=== PATIENT | male | born 1945 | race Caucasian/White ===

== ENCOUNTER 2017-07-01 17:00 | Emergency (ER) | payer MEDICARE, OTHER ==
--- NOTE | 2017-07-01 19:18 | EDM.PDOC ---
ED HPI GENERAL MEDICAL PROBLEM - General Chief Complaint: Cardiovascular Problem Stated Complaint: HEART Time Seen by Provider: 07/01/17 18:55 Source of Information: Reports: Patient, RN Notes Reviewed History Limitations: Reports: No Limitations - History of Present Illness INITIAL COMMENTS - FREE TEXT/NARRATIVE: Brought in by his Chief complaint Shortness of breath on exertion History of present illness 72-year-old male reports increased shortness of breath with exertion. He does have a history of hypertension hyperlipidemia and cardiac arrest in 1992 , due to myocardial infarction, did have angioplasty at that time and was recommended that he have a bypass but he declined this, has been medically managed. Last echocardiogram in 2014 He does have valvular heart disease, not sure of its a leaky valve not sure which valve. No other history of syncope No chest pain Mild swelling of the right ankle No orthopnea No paroxysmal nocturnal dyspnea Walking a dog he feels a little short of breath, especially last night. No palpitations No recent fevers or infections He was able to do snowblowing yesterday. No difficulty sleeping last night. Called the clinic but they referred him here because of the symptoms Apart from occasional pipe or cigar he does not smoke regularly. Both his parents smoked quite heavily, his father developed dementia but at age 78. Mom developed lung disease and lung cancer and at age 87 A brother , he had heart failure COPD and was a smoker He has a history of hypertension hyperlipidemia - Related Data Allergies Allergy/AdvReac Type Severity Reaction Status Date / Time No Known Allergies Allergy Verified 04/08/17 09:20 Home Meds: Home Meds Aspirin 81 mg PO DAILY 07/01/17 [History] Lisinopril 5 mg PO DAILY 07/01/17 [History] Metoprolol Succinate 50 mg PO DAILY 07/01/17 [History] Pediatric Multivit Comb No.101 [Gummy] 1 cap PO DAILY 07/01/17 [History] atorvaSTATin [Lipitor] 80 mg PO DAILY 07/01/17 [History] Past Medical History HEENT History: Reports: Cataract, Impaired Vision Cardiovascular History: Reports: High Cholesterol, Hypertension, [place] Oncologic (Cancer) History: Reports: Squamous Cell Carcinoma Dermatologic History: Reports: Other (See Below) Other Dermatologic History: nurofibromitosis - Infectious Disease History Infectious Disease History: Reports: Chicken Pox, Mumps - Past Surgical History HEENT Surgical History: Reports: Cataract Surgery Cardiovascular Surgical History: Reports: Other (See Below) Other Cardiovascular Surgeries/Procedures: Angioplasty GI Surgical History: Reports: Hernia, Abdominal Social & Family History - Tobacco Use Smoking Status *Q: Never Smoker - Caffeine Use Caffeine Use: Reports: Coffee - Recreational Drug Use Recreational Drug Use: No ED ROS GENERAL - Review of Systems Review Of Systems: See Below Constitutional: Denies: Fever, Chills, Diaphoresis, Decreased Appetite HEENT: Reports: No Symptoms Respiratory: Denies: Shortness of Breath, Cough Cardiovascular: Reports: Dyspnea on Exertion. Denies: Chest Pain, Lightheadedness, Palpitations, Syncope GI/Abdominal: Reports: No Symptoms Musculoskeletal: Reports: No Symptoms Skin: Reports: No Symptoms Neurological: Reports: No Symptoms Psychiatric: Reports: No Symptoms ED EXAM, GENERAL - Physical Exam Exam: See Below Exam Limited By: No Limitations General Appearance: Alert, No Apparent Distress, Other (Apart from elevation of blood pressure, he looks well, no acute distress, no difficulty speaking or breathing) Eye Exam: Bilateral Eye: EOMI, Normal Inspection Ears: Normal External Exam, Hearing Grossly Normal Nose: Normal Inspection Throat/Mouth: Normal Inspection, Normal Oropharynx, Normal Voice Head: Atraumatic, Normocephalic Neck: Normal Inspection, Supple, Other (Heart murmur transmitted into left carotid artery). No: Lymphadenopathy (L) Respiratory/Chest: No Respiratory Distress, Lungs Clear, No Accessory Muscle Use , Chest Non-Tender Cardiovascular: Normal Peripheral Pulses, Regular Rate, Rhythm, Systolic Murmur (On auscultation of the chest loudest in the right parasternal area but he also has radiation of heart murmur into the left carotid or else has a carotid bruit) , Other (Mild edema of his right ankle) GI/Abdominal: Normal Bowel Sounds, Soft, Non-Tender Back Exam: Normal Inspection Neurological: Alert, Oriented, No Motor/Sensory Deficits Skin Exam: Warm, Dry, Normal Color, Other (Multiple neurofibromas) Course - Vital Signs Last Recorded V/S: Last Vital Signs Temp 36.9 C 07/01/17 18:43 Pulse 68 07/01/17 19:57 Resp 14 07/01/17 19:57 BP 158/75 H 07/01/17 19:57 Pulse Ox 100 07/01/17 19:57 - Orders/Labs/Meds Orders: Active Orders 24 hr Category Date Time Status EKG Documentation Completion [RC] ASDIRECTED Care 07/01/17 19:16 Active EKG Documentation Completion [RC] ASDIRECTED Care 07/01/17 22:03 Active Chest 2V [CR] Stat Exams 07/01/17 19:15 Taken EKG 12 Lead [EK] Routine Ther 07/01/17 19:15 Ordered EKG 12 Lead [EK] Routine Ther 07/01/17 22:03 Ordered Labs: Laboratory Tests 07/01/17 07/01/17 07/01/17 Range/Units 19:25 19:25 21:34 WBC 7.9 (4.5-11.0) K/uL RBC 4.41 (4.30-5.90) M/uL Hgb 13.8 (12.0-15.0) g/dL Hct 39.9 L (40.0-54.0) % MCV 91 (80-98) fL MCH 31 (27-31) pg MCHC 35 (32-36) % Plt Count 190 (150-400) K/uL Sodium 139 L (140-148) mmol/L Potassium 3.7 (3.6-5.2) mmol/L Chloride 104 (100-108) mmol/L Carbon Dioxide 25 (21-32) mmol/L Anion Gap 13.7 (5.0-14.0) mmol/L BUN 19 H (7-18) mg/dL Creatinine 0.9 (0.8-1.3) mg/dL Est Cr Clr Drug Dosing 69.11 mL/min Estimated GFR (MDRD) > 60 (>60) Glucose 87 (74-106) mg/dL Calcium 9.1 (8.5-10.1) mg/dL Troponin I 0.059 H* 0.068 H* (0.000-0.056) ng/mL NT-Pro-B Natriuret Pep 249 H (5-125) pg/mL - Re-Assessments/Exams Free Text/Narrative Re-Assessment/Exam: 07/01/17 19:16 72-year-old male who presents with increasing shortness of breath with exertion over the last few days and palpitations last night. No symptoms presently Differential diagnosis includes respiratory infection, heart failure, angina, coronary artery disease among others Referred here from the office because of his symptoms will rule out ischemia 07/01/17 22:25 Chest x-ray negative for acute infiltrate or changes by my interpretation although the left side of the lung appears to be less dense than the right side. There may be some underlying emphysema, mild, EKG shows evidence of prior inferior infarction no acute changes Troponin minimally elevated at 0.059 CBC normal Remained asymptomatic during emergency Repeat EKG 2 hours later was unchanged Troponin was 0.068 Since he remained asymptomatic at rest and there is only a minimal difference in the troponin, safe for discharge but follow-up will be needed Echocardiogram to assess his valve and his ejection fraction and wall motion studies Referral to cardiology will need to be arranged Possibly stress test through nuclear medicine Return to emergency if chest pain short of breath or syncopal Departure - Departure Time of Disposition: 22:26 Disposition: Home, Self-Care 01 Condition: Good Clinical Impression: Shortness of breath on exertion Instructions: Shortness of Breath, Adult Referrals: Ivory Scruggs MD [Primary Care Provider] - Forms: ED Department Discharge Additional Instructions: No evidence of acute heart or lung disease tonight However shortness of breath with exertion can be Due to heart problems or lung disease Follow-up with your physician at the clinic to arrange echocardiogram and cardiology consultation. Also to discuss possible stress test Echocardiogram would be to assess her valve and your heart function. Return to emergency if that chest pain, shortness of breath at rest or with exertion that doesn't go away with rest, or severe weakness, fainting, or passing out. - My Orders Last 24 Hours: My Active Orders 07/01/17 19:15 Chest 2V [CR] Stat EKG 12 Lead [EK] Routine 07/01/17 19:16 EKG Documentation Completion [RC] ASDIRECTED 07/01/17 22:03 EKG Documentation Completion [RC] ASDIRECTED EKG 12 Lead [EK] Routine - Assessment/Plan Last 24 Hours: My Active Orders 07/01/17 19:15 Chest 2V [CR] Stat EKG 12 Lead [EK] Routine 07/01/17 19:16 EKG Documentation Completion [RC] ASDIRECTED 07/01/17 22:03 EKG Documentation Completion [RC] ASDIRECTED EKG 12 Lead [EK] Routine
--- NOTE | 2017-07-02 09:26 | CR ---
Chest 2V FINDINGS: The heart and vascular structures are normal in appearance. No infiltrates or effusions are demonstrated. The skeletal structures are unremarkable. IMPRESSION: Negative exam.
== END 2017-07-01 22:39 | disposition home or self-care (01) ==
LOC: JP.ED 17:00
DX: R06.02 Shortness of breath (principal); I10 Essential (primary) hypertension; E78.00 Pure hypercholesterolemia, unspecified; Z79.82 Long term (current) use of aspirin; Z79.899 Other long term (current) drug therapy
CPT/HCPCS: 36415; 71046; 71046-26; 80048; 83880; 84484; 85027; 93005; 99284; 99284-25

== ENCOUNTER 2017-09-22 14:02 | Observation (INO) | payer MEDICARE, OTHER ==
--- NOTE | 2017-09-22 15:51 | EDM.PDOC ---
ED HPI GENERAL MEDICAL PROBLEM - General Chief Complaint: General Stated Complaint: HEART DOUBLE PASS 08/27/17 Time Seen by Provider: 09/22/17 15:34 Source of Information: Reports: Patient, Family, RN Notes Reviewed History Limitations: Reports: No Limitations - History of Present Illness INITIAL COMMENTS - FREE TEXT/NARRATIVE: 72-year-old gentleman presents to emergency department today with a syncopal event and collapse. He has a known history of coronary artery disease recently underwent CABG he has approximately one month out states he's been doing well has been increasing in strength but no chest pain no shortness of breath and then today he had a syncopal event in his bedroom with collapse to the floor he did not injure himself he denies any chest pain shortness of breath nausea vomiting palpitations prior to the event at this time he feels asymptomatic - Related Data Allergies Allergy/AdvReac Type Severity Reaction Status Date / Time No Known Allergies Allergy Verified 04/08/17 09:20 Home Meds: Home Meds Aspirin 81 mg PO DAILY 07/01/17 [History] Metoprolol Succinate 25 mg PO DAILY 07/01/17 [History] Pediatric Multivit Comb No.101 [Gummy] 1 cap PO DAILY 07/01/17 [History] Nitroglycerin [Nitrostat] 0.4 mg SL ASDIRECTED PRN 07/10/17 [History] Clopidogrel [Plavix] 75 mg PO DAILY 09/22/17 [History] atorvaSTATin [Lipitor] 80 mg PO DAILY 09/22/17 [History] Past Medical History HEENT History: Reports: Cataract, Impaired Vision Cardiovascular History: Reports: CAD, High Cholesterol, Hypertension, [place], St[place] Oncologic (Cancer) History: Reports: Squamous Cell Carcinoma Dermatologic History: Reports: Other (See Below) Other Dermatologic History: nurofibromitosis - Infectious Disease History Infectious Disease History: Reports: Chicken Pox, Mumps - Past Surgical History HEENT Surgical History: Reports: Cataract Surgery Cardiovascular Surgical History: Reports: Other (See Below) Other Cardiovascular Surgeries/Procedures: Angioplasty GI Surgical History: Reports: Hernia, Abdominal Social & Family History - Tobacco Use Smoking Status *Q: Never Smoker - Caffeine Use Caffeine Use: Reports: Coffee, Tea - Recreational Drug Use Recreational Drug Use: No ED ROS GENERAL - Review of Systems Review Of Systems: See Below Constitutional: Reports: No Symptoms HEENT: Reports: No Symptoms Respiratory: Reports: No Symptoms Cardiovascular: Reports: Syncope. Denies: Chest Pain GI/Abdominal: Reports: No Symptoms : Reports: No Symptoms Musculoskeletal: Reports: No Symptoms Skin: Reports: No Symptoms ED EXAM, GENERAL - Physical Exam Exam: See Below Free Text/Narrative:: General: Male, not in any distress, alert and oriented x3 HEENT: head is atraumatic normocephalic, eyes pupils equal round reactive to light, sclera clear no conjunctivitis appreciated. Ears tympanic membranes clear and lopez landmarks and light reflex are present bilaterally canals are clear. Nose no septal deviation, nares are clear, no blood present. Mouth mucosa is moist and pink no erythema or exudate noted in soft palate, tongue is midline uvula is midline, dentition is intact. Neck: Supple no thyromegaly no tracheal deviation. Nodes: Cervical nodes subclavicular nodes nontender no palpable lymphadenopathy noted. Lungs: clear to auscultation bilaterally with symmetrical respirations, no adventitious noise appreciated. CV: Regular rate and rhythm S1 and S2 appreciated no murmurs rubs or gallops noted. Abdomen: Soft, nontender, no palpable masses or organomegaly appreciated, no distention no guarding bowel sounds are present, [scars ]. Neuro: Cranial nerves II through XII grossly intact Skin: Warm and dry, intact surgical wound clean dry and intact Extremities: +1 edema is appreciated on the left leg no edema is noted on the right leg, Course - Vital Signs Last Recorded V/S: Last Vital Signs Temp 98.4 F 09/22/17 15:22 Pulse 92 09/22/17 16:22 Resp 13 09/22/17 16:22 BP 135/71 09/22/17 16:22 Pulse Ox 95 09/22/17 16:22 - Orders/Labs/Meds Orders: Active Orders 24 hr Category Date Time Status Cardiac Monitoring [RC] .As Directed Care 09/22/17 15:46 Active EKG Documentation Completion [RC] ASDIRECTED Care 09/22/17 15:47 Active Peripheral IV Care [RC] . DIRECTED Care 09/22/17 17:07 Ordered UA W/MICROSCOPIC [URIN] Stat Lab 09/22/17 17:04 Ordered Lactated Ringers [Ringers, Lactated] 1,000 ml Med 09/22/17 17:07 Ordered IV BOLUS Sodium Chloride 0.9% [Saline Flush] Med 09/22/17 17:07 Ordered 10 ml FLUSH ASDIRECTED PRN Peripheral IV Insertion Adult [OM.PC] Urgent Oth 09/22/17 17:07 Ordered EKG 12 Lead [EK] Stat Ther 09/22/17 15:47 Ordered Medication Orders Lactated Ringer's (Ringers, Lactated) 1,000 mls @ 250 mls/hr IV BOLUS ONE Stop: 09/22/17 21:06 Sodium Chloride (Saline Flush) 10 ml FLUSH ASDIRECTED PRN PRN Reason: Keep Vein Open Labs: Laboratory Tests 09/22/17 09/22/17 09/22/17 Range/Units 15:57 15:57 17:04 WBC 12.1 H (4.5-11.0) K/uL RBC 3.97 L (4.30-5.90) M/uL Hgb 12.1 (12.0-15.0) g/dL Hct 37.5 L (40.0-54.0) % MCV 95 (80-98) fL MCH 31 (27-31) pg MCHC 32 (32-36) % Plt Count 390 (150-400) K/uL Neut % (Auto) 80 H (36-66) % Lymph % (Auto) 15 L (24-44) % Crisp % (Auto) 4 (2-6) % Eos % (Auto) 1 L (2-4) % Baso % (Auto) 0 (0-1) % Sodium 136 L (140-148) mmol/L Potassium 4.4 (3.6-5.2) mmol/L Chloride 102 (100-108) mmol/L Carbon Dioxide 23 (21-32) mmol/L Anion Gap 15.4 H (5.0-14.0) mmol/L BUN 23 H (7-18) mg/dL Creatinine 1.1 (0.8-1.3) mg/dL Est Cr Clr Drug Dosing 55.58 mL/min Estimated GFR (MDRD) > 60 (>60) Glucose 112 H (74-106) mg/dL Calcium 8.3 L (8.5-10.1) mg/dL Total Bilirubin 0.6 (0.2-1.0) mg/dL AST 33 (15-37) U/L ALT 53 (12-78) U/L Alkaline Phosphatase 179 H (46-116) U/L CK-MB (CK-2) 1.3 (0-3.6) mg/mL Troponin I 0.155 H* (0.000-0.056) ng/mL Total Protein 6.8 (6.4-8.2) g/dL Albumin 2.9 L (3.4-5.0) g/dL Globulin 3.9 H (2.3-3.5) g/dL Albumin/Globulin Ratio 0.7 L (1.2-2.2) Urine Color Yellow Urine Appearance Slightly cloudy Urine pH 5.0 (4.5-8.0) Ur Specific [place] 1.020 (1.008-1.030) Urine Protein Negative (NEGATIVE) mg/dL Urine Glucose (UA) Normal (NEGATIVE) mg/dL Urine Ketones Negative (NEGATIVE) mg/dL Urine Occult Blood Negative (NEGATIVE) Urine Nitrite Negative (NEGAITVE) Urine Bilirubin Negative (NEGATIVE) Urine Urobilinogen Normal (NORMAL) mg/dL Ur Leukocyte Esterase Small (NEGATIVE) Urine RBC 0-5 (0-5) Urine WBC 5-10 H (0-5) Ur Epithelial Cells Rare Amorphous Sediment Not seen Urine Bacteria Not seen Urine Mucus Moderate Meds: Medications Generic Name Dose Route Start Last Admin Trade Name Freq PRN Reason Stop Dose Admin Lactated Ringer's 1,000 mls @ 250 mls/hr 09/22/17 17:07 Ringers, Lactated IV 09/22/17 21:06 BOLUS ONE Sodium Chloride 10 ml 09/22/17 17:07 Saline Flush FLUSH ASDIRECTED PRN Keep Vein Open Departure - Departure Time of Disposition: 17:15 Disposition: Admitted As Inpatient 67 Condition: Good Clinical Impression: Syncope Qualifiers: Syncope type: unspecified Qualified Code(s): R55 - Syncope and collapse - Discharge Information Referrals: Ivory Scruggs MD [Primary Care Provider] - Forms: ED Department Discharge - My Orders Last 24 Hours: My Active Orders 09/22/17 15:46 Cardiac Monitoring [RC] .As Directed 09/22/17 15:47 EKG Documentation Completion [RC] ASDIRECTED EKG 12 Lead [EK] Stat 09/22/17 17:04 UA W/MICROSCOPIC [URIN] Stat 09/22/17 17:07 Peripheral IV Care [RC] . DIRECTED Lactated Ringers [Ringers, Lactated] 1,000 ml IV BOLUS Sodium Chloride 0.9% [Saline Flush] 10 ml FLUSH ASDIRECTED PRN Peripheral IV Insertion Adult [OM.PC] Urgent - Assessment/Plan Last 24 Hours: My Active Orders 09/22/17 15:46 Cardiac Monitoring [RC] .As Directed 09/22/17 15:47 EKG Documentation Completion [RC] ASDIRECTED EKG 12 Lead [EK] Stat 09/22/17 17:04 UA W/MICROSCOPIC [URIN] Stat 09/22/17 17:07 Peripheral IV Care [RC] . DIRECTED Lactated Ringers [Ringers, Lactated] 1,000 ml IV BOLUS Sodium Chloride 0.9% [Saline Flush] 10 ml FLUSH ASDIRECTED PRN Peripheral IV Insertion Adult [OM.PC] Urgent Plan: Assessment Acuity = acute Site and laterality = syncopal event comp came the patient with known history of coronary artery disease with recent bypass about one month ago Etiology = unclear etiology Manifestations = none Location of injury = Home Lab values = WBC elevated at 12.1 consistent leukocytosis, sodium low at 136 consistent hyponatremia troponin elevated at 0.155 of uncertain significance CK- MB was negative urinalysis reveals 5-10 WBCs consistent with pyuria Plan Called discussed case with Dr. Reid cardiology on-call at [facility] recommended observation recheck troponins hydration and cardiac monitoring. Called and discussed case with hospitalist oracle consultant he agreed, and evaluate the patient emergency department for admission This note was dictated using [employer] voice recognition software please call with any questions on syntax or grammar.
[2017-09-22] MEDS ORDERED: Sodium Chloride 0.9% 10 ML Syringe FLUSH PRN ×2 (17:07→19:50)
[2017-09-22] MEDS ORDERED: Lactated Ringers 1,000 ML IV ONE (17:07)
[2017-09-22] MEDS ORDERED: diphenhydrAMINE 50 MG/ML SDV IVPUSH ONE (18:19)
[2017-09-22] MEDS: methylPREDNISolone Sodium Succinate 40 MG/1 ML SDV IVPUSH SCH (18:29)
--- NOTE | 2017-09-22 19:11 | PCM.HP ---
H&P History of Present Illness - General Date of Service: 09/22/17 Admit Problem/Dx: Source of Information: Patient, Family, Provider, RN Notes Reviewed History Limitations: Reports: No Limitations - History of Present Illness Initial Comments - Free Text/Narative: This patient is a 72-year-old gentleman who is admitted through the emergency department with diffuse body rash, mild elevation in troponin, and a syncopal episode. 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 On discharge he was placed on aspirin and Plavix. He was doing well until yesterday when he noted onset of a rash involving most of his body with associated pruritus. He has felt more weak and tired since then. This morning after he got out of bed experienced a syncopal episode with minimal prodrome as far as symptoms. He came into the emergency department for evaluation EKG shows no acute ST segment changes, and troponin was mildly elevated. Findings reviewed with cardiology who recommended that he be admitted for observation status and serial troponin levels. He is felt to be mildly dehydrated and has received IV fluids in the emergency department. - Related Data Allergies/Adverse Reactions: Allergies Allergy/AdvReac Type Severity Reaction Status Date / Time No Known Allergies Allergy Verified 04/08/17 09:20 Home Medications: Home Meds Aspirin 81 mg PO DAILY 07/01/17 [History] Metoprolol Succinate 25 mg PO DAILY 07/01/17 [History] Pediatric Multivit Comb No.101 [Gummy] 1 cap PO DAILY 07/01/17 [History] Nitroglycerin [Nitrostat] 0.4 mg SL ASDIRECTED PRN 07/10/17 [History] Clopidogrel [Plavix] 75 mg PO DAILY 09/22/17 [History] atorvaSTATin [Lipitor] 80 mg PO DAILY 09/22/17 [History] Past Medical History HEENT History: Reports: Cataract, Impaired Vision Cardiovascular History: Reports: CAD, High Cholesterol, Hypertension, [place], Stents Oncologic (Cancer) History: Reports: Squamous Cell Carcinoma Dermatologic History: Reports: Other (See Below) Other Dermatologic History: nurofibromitosis - Infectious Disease History Infectious Disease History: Reports: Chicken Pox, Mumps - Past Surgical History HEENT Surgical History: Reports: Cataract Surgery Cardiovascular Surgical History: Reports: Other (See Below) Other Cardiovascular Surgeries/Procedures: Angioplasty GI Surgical History: Reports: Hernia, Abdominal Social & Family History - Tobacco Use Smoking Status *Q: Never Smoker - Caffeine Use Caffeine Use: Reports: Coffee, Tea - Recreational Drug Use Recreational Drug Use: No H&P Review of Systems - Review of Systems: Review Of Systems: See Below General: Reports: Weakness. Denies: Fever, Chills HEENT: Reports: Other (Visual loss secondary to CVA, slow improvement in vision) . Denies: Eye Pain, Headaches, Hearing Changes Pulmonary: Reports: No Symptoms Cardiovascular: Reports: Lightheadedness, Syncope. Denies: Chest Pain, Palpitations, Dyspnea on Exertion, Orthopnea, PND, Edema Gastrointestinal: Reports: No Symptoms Genitourinary: Reports: No Symptoms Musculoskeletal: Reports: No Symptoms Skin: Reports: Pruritis, Rash, Erythema. Denies: Urticaria Psychiatric: Reports: No Symptoms Neurological: Reports: No Symptoms Hematologic/Lymphatic: Reports: No Symptoms Immunologic: Reports: No Symptoms Exam - Exam Exam: See Below - Vital Signs Vital Signs: Last Vital Signs Temp 98.4 F 09/22/17 15:22 Pulse 92 09/22/17 16:22 Resp 13 09/22/17 16:22 BP 135/71 09/22/17 16:22 Pulse Ox 95 09/22/17 16:22 Orthostatic Blood Pressure [ 94/62 Standing] Orthostatic Blood Pressure [ 126/69 Supine] Weight: 140 lb 10.479 oz - Exam Quality Assessment: DVT Prophylaxis General: Alert, Oriented, Cooperative, Mild Distress HEENT: Conjunctiva Clear, Hearing Intact, Mucosa Moist & [place], Normal Nasal Septum, Posterior Pharynx Clear, Pupils Equal Neck: Supple, Trachea Midline, +2 Carotid Pulse wo Bruit Lungs: Clear to Auscultation, Normal Respiratory Effort Cardiovascular: Regular Rate, Regular Rhythm, Normal S1, Normal S2. No: Systolic Murmur, Diastolic Murmur GI/Abdominal Exam: Soft, Non-Tender, No Organomegaly, No Distention Back Exam: Normal Inspection, Full Range of Motion Extremities: Non-Tender, Pedal Edema Skin: Warm, Dry, Rash Neurological: Strength Equal Bilateral, Normal Speech, Normal Tone, Sensation Intact, Focal Deficit (Decrease in vision which has improved over the past few weeks). No: Cranial Nerves Intact Neuro Extensive - Mental Status: Alert, Oriented x3, Normal Mood/Affect, Normal Cognition, Memory Intact - Patient Data Lab Results Last 24 hrs: Laboratory Results - last 24 hr 09/22/17 09/22/17 09/22/17 Range/Units 15:57 15:57 17:04 WBC 12.1 H (4.5-11.0) K/uL RBC 3.97 L (4.30-5.90) M/uL Hgb 12.1 (12.0-15.0) g/dL Hct 37.5 L (40.0-54.0) % MCV 95 (80-98) fL MCH 31 (27-31) pg MCHC 32 (32-36) % Plt Count 390 (150-400) K/uL Neut % (Auto) 80 H (36-66) % Lymph % (Auto) 15 L (24-44) % [place] % (Auto) 4 (2-6) % Eos % (Auto) 1 L (2-4) % Baso % (Auto) 0 (0-1) % Sodium 136 L (140-148) mmol/L Potassium 4.4 (3.6-5.2) mmol/L Chloride 102 (100-108) mmol/L Carbon Dioxide 23 (21-32) mmol/L Anion Gap 15.4 H (5.0-14.0) mmol/L BUN 23 H (7-18) mg/dL Creatinine 1.1 (0.8-1.3) mg/dL Est Cr Clr Drug Dosing 55.58 mL/min Estimated GFR (MDRD) > 60 (>60) Glucose 112 H (74-106) mg/dL Calcium 8.3 L (8.5-10.1) mg/dL Total Bilirubin 0.6 (0.2-1.0) mg/dL AST 33 (15-37) U/L ALT 53 (12-78) U/L Alkaline Phosphatase 179 H (46-116) U/L CK-MB (CK-2) 1.3 (0-3.6) mg/mL Troponin I 0.155 H* (0.000-0.056) ng/mL Total Protein 6.8 (6.4-8.2) g/dL Albumin 2.9 L (3.4-5.0) g/dL Globulin 3.9 H (2.3-3.5) g/dL Albumin/Globulin Ratio 0.7 L (1.2-2.2) Urine Color Yellow Urine Appearance Slightly cloudy Urine pH 5.0 (4.5-8.0) Ur Specific [place] 1.020 (1.008-1.030) Urine Protein Negative (NEGATIVE) mg/dL Urine Glucose (UA) Normal (NEGATIVE) mg/dL Urine Ketones Negative (NEGATIVE) mg/dL Urine Occult Blood Negative (NEGATIVE) Urine Nitrite Negative (NEGAITVE) Urine Bilirubin Negative (NEGATIVE) Urine Urobilinogen Normal (NORMAL) mg/dL Ur Leukocyte Esterase Small (NEGATIVE) Urine RBC 0-5 (0-5) Urine WBC 5-10 H (0-5) Ur Epithelial Cells Rare Amorphous Sediment Not seen Urine Bacteria Not seen Urine Mucus Moderate Result Diagrams: 09/22/17 15:57 09/22/17 15:57 *Q Meaningful Use (ADM) - VTE Risk Assess *Q Each Risk Factor Represents 1 Point: History of prior major surgery less than 1 month Total Score 1 Point Risk Factors: 1 Each Risk Factor Represents 2 Points: Age 60 - 74 Years Total Score 2 Point Risk Factors: 2 Each Risk Factor Represents 3 Points: None Total Score 3 Point Risk Factors: 0 Each Risk Factor Represents 5 Points: None Total Score 5 Point Risk Factors: 0 Venous Thromboembolism Risk Factor Score *Q: 3 Problem List Initiated/Reviewed/Updated: Yes Orders Last 24hrs: Active Orders 24 hr Category Date Time Status Patient Status Manage Transfer [TRANSFER] Routine ADT 09/22/17 18:44 Ordered Cardiac Monitoring [RC] .As Directed Care 09/22/17 15:46 Active EKG Documentation Completion [RC] ASDIRECTED Care 09/22/17 15:47 Active Peripheral IV Care [RC] . DIRECTED Care 09/22/17 17:07 Active UA W/MICROSCOPIC [URIN] Stat Lab 09/22/17 17:04 Ordered Lactated Ringers [Ringers, Lactated] 1,000 ml Med 09/22/17 17:07 Active IV BOLUS Sodium Chloride 0.9% [Saline Flush] Med 09/22/17 17:07 Active 10 ml FLUSH ASDIRECTED PRN methylPREDNISolone Sod Succ [Solu-MEDROL] Med 09/22/17 18:30 Active 40 mg IVPUSH Q6H Peripheral IV Insertion Adult [OM.PC] Urgent Oth 09/22/17 17:07 Ordered Resuscitation Status Routine Resus Stat 09/22/17 18:46 Ordered EKG 12 Lead [EK] Stat Ther 09/22/17 15:47 Ordered Medication Orders Lactated Ringer's (Ringers, Lactated) 1,000 mls @ 250 mls/hr IV BOLUS ONE Stop: 09/22/17 21:06 Last Admin: 09/22/17 17:16 Dose: 250 mls/hr Methylprednisolone Sodium Succinate (Solu-Medrol) 40 mg IVPUSH Q6H NOHEMY Last Admin: 09/22/17 18:29 Dose: 40 mg Sodium Chloride (Saline Flush) 10 ml FLUSH ASDIRECTED PRN PRN Reason: Keep Vein Open Last Admin: 09/22/17 17:16 Dose: 10 ml Assessment/Plan Comment:: ASSESSMENT AND PLAN DIFFUSE DERMATITIS-likely a drug reaction, most likely medication would be Plavix as he is recently been started on this within the past month. -Discontinue Plavix -Benadryl 25 mg IV every 6 hours when necessary -Solu-Medrol 40 mg IV every 6 hours MILD ELEVATION IN TROPONIN-reviewed with cardiology, recommended observation admission for serial troponin levels, felt likely to be secondary to mild dehydration. -Serial troponin levels SYNCOPAL EPISODE-likely secondary to mild dehydration and possible component of allergic reaction to medication. He had minimal preceding symptoms other than mild lightheadedness. -Cardiac monitoring -IV fluids for hydration -Orthostatic vital signs RECENT CORONARY ARTERY BYPASS SURGERY RECENT CVA WITH LOSS OF VISION-vision slowly improving over the past few weeks -Discontinue Plavix because of allergic reaction -Aspirin 325 mg by mouth daily MAINTENANCE ISSUES -DVT prophylaxis; SCUDs -GI prophylaxis; not indicated -Xie catheter; not indicated -Nutrition; 2 g sodium diet -Nicotine dependence; not required CODE STATUS-FULL CODE ADMISSION STATUS-this patient will be admitted to observation status, expect no more than a one night hospital stay for evaluation and management of problems as outlined above. DISPOSITION-anticipate discharge to home after the hospital stay. PRIMARY CARE PROVIDER-Dr. Daugherty
[2017-09-22] MEDS ORDERED: Polyethylene Glycol 3350 Powder 17 GM Packet PO PRN (19:50)
[2017-09-22] MEDS ORDERED: Acetaminophen 325 MG Tab PO PRN (19:50)
[2017-09-22] MEDS ORDERED: Ondansetron 4 MG/2 ML SDV IV PRN (19:50)
[2017-09-22] MEDS ORDERED: oxyCODONE 5 MG Tab PO PRN (19:50)
[2017-09-22] MEDS ORDERED: Magnesium Hydroxide 400 MG/5 ML Susp 30 ML Cup PO PRN (19:50)
[2017-09-22] MEDS ORDERED: diphenhydrAMINE 50 MG/ML SDV IVPUSH PRN (19:50)
[2017-09-22] MEDS: Lactated Ringers 1,000 ML IV SCH (20:47)
[2017-09-23] MEDS: methylPREDNISolone Sodium Succinate 40 MG/1 ML SDV IVPUSH SCH ×2 (00:26→06:06)
[2017-09-23] MEDS: Lactated Ringers 1,000 ML IV SCH (04:47)
[2017-09-23] MEDS ORDERED: METOPROLOL SUCC 25 MG PO SCH (09:00)
[2017-09-23] MEDS ORDERED: Aspirin 325 MG Tab.EC PO SCH (09:00)
[2017-09-23] MEDS ORDERED: diphenhydrAMINE 25 MG Cap PO STA (10:18)
--- NOTE | 2017-09-23 10:20 | PCM.DCSUM1 ---
Discharge Summary - Hospital Course Brief History: Mr. Joyner is a 72-year-old gentleman who was admitted through the emergency department with a rash secondary to drug reaction as well as an episode of syncope earlier in the day. - Discharge Data Discharge Date: 09/23/17 Discharge Disposition: Home, Self-Care 01 Condition: Fair - Discharge Diagnosis/Problem(s) (1) Rash due to allergy SNOMED Code(s): 79406482 ICD Code: R21 - RASH AND OTHER NONSPECIFIC SKIN ERUPTION Status: Acute Current Visit: Yes (2) Elevated troponin SNOMED Code(s): 555930189, 645629153, 729585285 ICD Code: R74.8 - ABNORMAL LEVELS OF OTHER SERUM ENZYMES Status: Acute Current Visit: Yes (3) Syncope SNOMED Code(s): 723655192 ICD Code: R55 - SYNCOPE AND COLLAPSE Status: Acute Current Visit: Yes Qualifiers: Syncope type: unspecified Qualified Code(s): R55 - Syncope and collapse - Patient Summary/Data Hospital Course: Mr. Joyner is a 72-year-old gentleman who was admitted through the emergency department with diffuse body rash, mild elevation in troponin, and a syncopal episode. 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 On discharge he was placed on aspirin and Plavix. He was doing well until yesterday when he noted onset of a rash involving most of his body with associated pruritus. He has felt more weak and tired since then. This morning after he got out of bed experienced a syncopal episode with minimal prodrome as far as symptoms. He came into the emergency department for evaluation, EKG shows no acute ST segment changes, and troponin was mildly elevated. Findings reviewed with cardiology who recommended that he be admitted for observation status and serial troponin levels. He is felt to be mildly dehydrated and has received IV fluids in the emergency department. IV fluids were continued after admission and he was placed on telemetry monitoring. No significant cardiac dysrhythmias were noted during hospitalization other than an ongoing sinus tachycardia. Orthostatic vital signs were obtained and he showed only mild drop with change in position. Serial troponin levels were obtained and remained stable but mildly elevated. Dermatitis was felt to be secondary to Plavix. Plavix was held at the time of admission and after discussion with neurology he will be placed on full dose aspirin daily. Dermatitis improved significantly during hospitalization but had not totally resolved. He will continue to take Benadryl 25 mg as needed for itching. Activity will be as tolerated and he will resume his usual diet. Follow -up appointment is already scheduled with his cardiothoracic surgeon for tomorrow Friday, September 24. He has a follow-up appointment with his practice director on September 25. Follow-up appointment will be scheduled with his primary care provider within one week. - Patient Instructions Diet: Heart Healthy Diet Activity: As Tolerated Other/Special Instructions: Patient already has appointment with cardiothoracic surgery for tomorrow in [place]. Please schedule follow-up appointment with Dr. Daugherty within one week. - Discharge Plan Prescriptions/Med Rec: Aspirin 325 mg PO DAILY #100 tab diphenhydrAMINE [Benadryl] 25 mg PO Q6H PRN #30 cap PRN Reason: Itching Home Medications: Home Meds Metoprolol Succinate 25 mg PO DAILY 07/01/17 [History] Pediatric Multivit Comb No.101 [Gummy] 1 cap PO DAILY 07/01/17 [History] Nitroglycerin [Nitrostat] 0.4 mg SL ASDIRECTED PRN 07/10/17 [History] atorvaSTATin [Lipitor] 80 mg PO DAILY 09/22/17 [History] Aspirin 325 mg PO DAILY #100 tab 09/23/17 [Rx] diphenhydrAMINE [Benadryl] 25 mg PO Q6H PRN #30 cap 09/23/17 [Rx] Referrals: Ivory Scruggs MD [Primary Care Provider] - - Discharge Summary/Plan Comment DC Time >30 min.: No - Patient Data Vitals - Most Recent: Last Vital Signs Temp 97.7 F 09/23/17 07:00 Pulse 99 09/23/17 07:00 Resp 16 09/23/17 07:00 BP 120/62 09/23/17 07:00 Pulse Ox 95 09/23/17 07:00 Orthostatic Blood Pressure [ 115/49 Standing] Orthostatic Blood Pressure [ 107/48 Sitting] Orthostatic Blood Pressure [ 120/62 Supine] Weight - Most Recent: 140 lb 10.479 oz I&O - Last 24 hours: Intake & Output 09/22/17 09/23/17 09/23/17 22:59 06:59 14:59 Intake Total 1200 Output Total 200 850 Balance -200 350 Lab Results - Last 24 hrs: Laboratory Results - last 24 hr 09/22/17 09/22/17 09/22/17 Range/Units 15:57 15:57 17:04 WBC 12.1 H (4.5-11.0) K/uL RBC 3.97 L (4.30-5.90) M/uL Hgb 12.1 (12.0-15.0) g/dL Hct 37.5 L (40.0-54.0) % MCV 95 (80-98) fL MCH 31 (27-31) pg MCHC 32 (32-36) % Plt Count 390 (150-400) K/uL Neut % (Auto) 80 H (36-66) % Lymph % (Auto) 15 L (24-44) % [place] % (Auto) 4 (2-6) % Eos % (Auto) 1 L (2-4) % Baso % (Auto) 0 (0-1) % Sodium 136 L (140-148) mmol/L Potassium 4.4 (3.6-5.2) mmol/L Chloride 102 (100-108) mmol/L Carbon Dioxide 23 (21-32) mmol/L Anion Gap 15.4 H (5.0-14.0) mmol/L BUN 23 H (7-18) mg/dL Creatinine 1.1 (0.8-1.3) mg/dL Est Cr Clr Drug Dosing 55.58 mL/min Estimated GFR (MDRD) > 60 (>60) Glucose 112 H (74-106) mg/dL Calcium 8.3 L (8.5-10.1) mg/dL Total Bilirubin 0.6 (0.2-1.0) mg/dL AST 33 (15-37) U/L ALT 53 (12-78) U/L Alkaline Phosphatase 179 H (46-116) U/L CK-MB (CK-2) 1.3 (0-3.6) mg/mL Troponin I 0.155 H* (0.000-0.056) ng/mL Total Protein 6.8 (6.4-8.2) g/dL Albumin 2.9 L (3.4-5.0) g/dL Globulin 3.9 H (2.3-3.5) g/dL Albumin/Globulin Ratio 0.7 L (1.2-2.2) Urine Color Yellow Urine Appearance Slightly cloudy Urine pH 5.0 (4.5-8.0) Ur Specific [place] 1.020 (1.008-1.030) Urine Protein Negative (NEGATIVE) mg/dL Urine Glucose (UA) Normal (NEGATIVE) mg/dL Urine Ketones Negative (NEGATIVE) mg/dL Urine Occult Blood Negative (NEGATIVE) Urine Nitrite Negative (NEGAITVE) Urine Bilirubin Negative (NEGATIVE) Urine Urobilinogen Normal (NORMAL) mg/dL Ur Leukocyte Esterase Small (NEGATIVE) Urine RBC 0-5 (0-5) Urine WBC 5-10 H (0-5) Ur Epithelial Cells Rare Amorphous Sediment Not seen Urine Bacteria Not seen Urine Mucus Moderate 09/22/17 09/22/17 09/23/17 Range/Units 20:58 21:59 04:35 WBC (4.5-11.0) K/uL RBC (4.30-5.90) M/uL Hgb (12.0-15.0) g/dL Hct (40.0-54.0) % MCV (80-98) fL MCH (27-31) pg MCHC (32-36) % Plt Count (150-400) K/uL Neut % (Auto) (36-66) % Lymph % (Auto) (24-44) % [place] % (Auto) (2-6) % Eos % (Auto) (2-4) % Baso % (Auto) (0-1) % Sodium (140-148) mmol/L Potassium (3.6-5.2) mmol/L Chloride (100-108) mmol/L Carbon Dioxide (21-32) mmol/L Anion Gap (5.0-14.0) mmol/L BUN (7-18) mg/dL Creatinine (0.8-1.3) mg/dL Est Cr Clr Drug Dosing mL/min Estimated GFR (MDRD) (>60) Glucose (74-106) mg/dL Calcium (8.5-10.1) mg/dL Total Bilirubin (0.2-1.0) mg/dL AST (15-37) U/L ALT (12-78) U/L Alkaline Phosphatase (46-116) U/L CK-MB (CK-2) (0-3.6) mg/mL Troponin I 0.149 H* 0.168 H* (0.000-0.056) ng/mL Total Protein (6.4-8.2) g/dL Albumin (3.4-5.0) g/dL Globulin (2.3-3.5) g/dL Albumin/Globulin Ratio (1.2-2.2) Urine Color Yellow Urine Appearance Clear Urine pH 6.0 (4.5-8.0) Ur Specific [place] 1.010 (1.008-1.030) Urine Protein Negative (NEGATIVE) mg/dL Urine Glucose (UA) 50 H (NEGATIVE) mg/dL Urine Ketones Negative (NEGATIVE) mg/dL Urine Occult Blood Negative (NEGATIVE) Urine Nitrite Negative (NEGAITVE) Urine Bilirubin Negative (NEGATIVE) Urine Urobilinogen Normal (NORMAL) mg/dL Ur Leukocyte Esterase Negative (NEGATIVE) Urine RBC Not seen (0-5) Urine WBC Not seen (0-5) Ur Epithelial Cells Few Amorphous Sediment Not seen Urine Bacteria Not seen Urine Mucus Not seen Med Orders - Current: Current Medications Acetaminophen (Tylenol) 650 mg PO Q4H PRN PRN Reason: Pain (Mild 1-3)/fever Aspirin (Ecotrin) 325 mg PO DAILY [facility] Diphenhydramine HCl (Benadryl) 25 mg IVPUSH Q6H PRN PRN Reason: Itching Last Admin: 09/23/17 00:27 Dose: 25 mg Lactated Ringer's (Ringers, Lactated) 1,000 mls @ 125 mls/hr IV ASDIRECTED [facility] Last Admin: 09/23/17 04:47 Dose: 125 mls/hr Magnesium Hydroxide (Milk Of Magnesia) 30 ml PO Q12H PRN PRN Reason: Constipation Methylprednisolone Sodium Succinate (Solu-Medrol) 40 mg IVPUSH Q6H [facility] Last Admin: 09/23/17 06:06 Dose: 40 mg Metoprolol Succinate (Toprol Xl) 25 mg PO DAILY [facility] Ondansetron HCl (Zofran) 4 mg IV Q4H PRN PRN Reason: Nausea/Vomiting Oxycodone HCl (Oxycodone) 5 mg PO Q4H PRN PRN Reason: Pain (moderate 4-6) Polyethylene Glycol (Miralax) 17 gm PO DAILY PRN PRN Reason: Constipation Senna/Docusate Sodium (Senna Plus) 1 tab PO BID PRN PRN Reason: Constipation Sodium Chloride (Saline Flush) 10 ml FLUSH ASDIRECTED PRN PRN Reason: Keep Vein Open Discontinued Medications Diphenhydramine HCl (Benadryl) 25 mg IVPUSH ONETIME ONE Stop: 09/22/17 18:20 Last Admin: 09/22/17 18:29 Dose: 25 mg Lactated Ringer's (Ringers, Lactated) 1,000 mls @ 250 mls/hr IV BOLUS ONE Stop: 09/22/17 21:06 Last Admin: 09/22/17 17:16 Dose: 250 mls/hr Sodium Chloride (Saline Flush) 10 ml FLUSH ASDIRECTED PRN PRN Reason: Keep Vein Open Last Admin: 09/22/17 17:16 Dose: 10 ml - Exam General: Reports: Alert, Oriented, Cooperative, Mild Distress Lungs: Reports: Clear to Auscultation, Normal Respiratory Effort Cardiovascular: Reports: Regular Rhythm, No Murmurs, Tachycardia GI/Abdominal Exam: Soft, Non-Tender, No Organomegaly, No Distention Skin: Reports: Rash
== END 2017-09-23 10:45 | disposition home or self-care (01) ==
LOC: JP.ED 14:02 → JP.ICU 18:44
PROVIDERS: ADMIT Hospitalist; ATTEND Hospitalist
DX: R55 Syncope and collapse (principal); L30.8 Other specified dermatitis; R21 Rash and other nonspecific skin eruption; R74.8 Abnormal levels of other serum enzymes; L29.9 Pruritus, unspecified; I25.10 Atherosclerotic heart disease of native coronary artery without angina pectoris; E78.00 Pure hypercholesterolemia, unspecified; I10 Essential (primary) hypertension; I25.2 Old myocardial infarction; Z95.1 Presence of aortocoronary bypass graft; Z79.899 Other long term (current) drug therapy; Z79.82 Long term (current) use of aspirin; Z95.5 Presence of coronary angioplasty implant and graft; Z85.828 Personal history of other malignant neoplasm of skin
CPT/HCPCS: 36415; 80053; 81001; 82553; 84484; 85025; 93005; 93010; 96361; 96374; 96375; 99217; 99219; 99285; A9270; J1200; J2920; J7050; J7120; 96376; G0378

== ENCOUNTER 2018-08-25 06:41 | Day surgery (SDC) | payer MEDICARE, OTHER ==
[2018-08-25] MEDS ORDERED: Sodium Chloride 0.9% 1,000 ML IV SCH (07:00)
[2018-08-25] MEDS ORDERED: Propofol 200 MG/20 ML SDV ONE (07:26)
[2018-08-25] MEDS ORDERED: fentaNYL 100 MCG/2 ML SDV ONE (07:26)
[2018-08-25] MEDS ORDERED: ceFAZolin 1 GM in Premix Bag 1 BAG IV ONE (07:30)
--- NOTE | 2018-08-25 14:18 | OR ---
DATE OF PROCEDURE: 08/25/2018 PROCEDURE: Colonoscopy. FINDINGS: 1. Cecal polyp, approximately 5 mm, completely removed using cold biopsy forceps. 2. Sigmoid colon polyp, approximately 8 mm, completely removed using cold snare. COMPLICATIONS: None. DENTAL OFFICER: None. ANESTHESIA: MAC. PREOPERATIVE DIAGNOSIS: Screening colonoscopy. POSTOPERATIVE DIAGNOSIS: Screening colonoscopy. RISKS: Risks, benefits, alternatives, and limitations including, but not limited to infection, bleeding, and perforation were explained to the patient who wished to proceed. PROCEDURE IN DETAIL: The patient was placed left lateral decubitus position. Digital rectal exam was performed without abnormality. Scope was introduced and advanced atraumatically to the ileocecal valve. The scope was brought back to the ascending, transverse, descending colon, and retroflexed. The aforementioned polyps were identified and completely removed. No evidence of old or new blood. No evidence of diverticulosis, no other abnormalities. The patient tolerated the procedure well. Juan Mcclain MD /[id number]
== END 2018-08-25 09:40 | disposition home or self-care (01) ==
LOC: JP.SDS 06:41
PROVIDERS: ATTEND Surgery
DX: Z12.11 Encounter for screening for malignant neoplasm of colon (principal); D12.0 Benign neoplasm of cecum; D12.5 Benign neoplasm of sigmoid colon; I10 Essential (primary) hypertension; I25.10 Atherosclerotic heart disease of native coronary artery without angina pectoris; E78.5 Hyperlipidemia, unspecified; Z88.8 Allergy status to other drugs, medicaments and biological substances
CPT/HCPCS: 45380; 45385; J2704; J3010; 88305

== ENCOUNTER 2019-12-30 05:30 | Day surgery (SDC) | payer MEDICARE ==
[2019-12-30] MEDS ORDERED: Dextrose 5%-Lactated Ringers 1,000 ML IV SCH (06:00)
[2019-12-30] MEDS ORDERED: Propofol 200 MG/20 ML SDV ONE (07:05)
[2019-12-30] MEDS ORDERED: fentaNYL 100 MCG/2 ML SDV ONE (07:05)
[2019-12-30] MEDS ORDERED: Pantoprazole 40 MG Vial IVPUSH ONE (07:34)
--- NOTE | 2020-01-10 23:05 | OR ---
DATE OF PROCEDURE: 12/30/2019 SURGEON: Royce Smith MD PREOPERATIVE DIAGNOSIS: Dysphagia referable to distal esophagus. POSTOPERATIVE DIAGNOSES: 1. Moderate-sized hiatal hernia with stricture to esophagogastric junction and active gastroesophageal reflux disease. 2. Mild antral gastritis/duodenitis. OPERATIVE PROCEDURES: Esophagogastroduodenoscopy with; 1. Biopsies of esophagogastric junction for histologic evaluation. 2. Biopsies of antrum for CLOtest (94069). 3. Esophageal dilation (66005). ANESTHESIA: IV sedation. INDICATION FOR PROCEDURE: This is a 74-year-old presenting with some dysphagia referable to distal esophagus. He has had stricture dilated in the past. He is not presently on any antisecretory medication. Plan is to proceed with upper GI endoscopy with biopsies and/or dilation as indicated. Potential risks including bleeding and perforation were discussed and the patient wishes to proceed. DETAILS OF PROCEDURE: The patient was taken to the operating room and placed in a left lateral decubitus position. IV sedation was administered, after which the upper GI endoscope was passed orally through the length of the esophagus and into the stomach with retroflexion view of the fundus, and thereafter through the pyloric channel, then into the junction of the 3rd and 4th portions of the duodenum. Findings included normal hypopharynx, larynx, upper esophageal sphincter, and esophageal body. There was a moderate-sized hiatal hernia measuring around 3 cm. At the esophagogastric junction, there was a fibrous stricture, this was bland in appearance and not suggestive of neoplasia grossly. This was not tight enough such that the scope would not easily pass through that area. Within the stomach, there was some patchy redness in the antrum and duodenal bulb beyond which the findings normalized. At this point, biopsies obtained from the antrum and sent for CLOtest for H pylori. Multiple biopsies were obtained from esophagogastric junction including the area of stricturing and sent for histologic evaluation. A guidewire was then placed into the stomach and the gastroscope withdrawn leaving the guidewire in place. A 48-Sinhala Savary dilator was then placed across the wire and held in position for 1 minute, after which the wire and dilator were removed. Endoscope was then replaced which showed significant dilation of the stricture without any complications. The procedure was then concluded. The patient should probably be on some active anti-reflux medication. We will give him Protonix 40 mg IV in the recovery room, then begin Protonix 40 mg daily. He will be following with GEORGI Archer, [facility] in 2 weeks. Royce Smith MD /[id number]
== END 2019-12-30 09:00 | disposition home or self-care (01) ==
LOC: JP.SDS 05:30
PROVIDERS: ATTEND Surgery
DX: K22.2 Esophageal obstruction (principal); K44.9 Diaphragmatic hernia without obstruction or gangrene; K31.89 Other diseases of stomach and duodenum; K29.90 Gastroduodenitis, unspecified, without bleeding; J43.9 Emphysema, unspecified; E78.5 Hyperlipidemia, unspecified; I10 Essential (primary) hypertension; I25.10 Atherosclerotic heart disease of native coronary artery without angina pectoris
CPT/HCPCS: 43239; 43248; 87081; 88305; C9113; J2704; J3010; J7121

== ENCOUNTER 2021-09-14 06:33 | Day surgery (SDC) | payer MEDICARE ==
[2021-09-14] MEDS ORDERED: Propofol 200 MG/20 ML SDV ONE (07:00)
[2021-09-14] MEDS ORDERED: fentaNYL 100 MCG/2 ML SDV ONE (07:00)
[2021-09-14] MEDS ORDERED: Sodium Chloride 0.9% 1,000 ML IV SCH (07:00)
== END 2021-09-14 09:27 | disposition home or self-care (01) ==
LOC: JP.SDS 06:33
PROVIDERS: ATTEND Surgery
DX: Z12.11 Encounter for screening for malignant neoplasm of colon (principal); I10 Essential (primary) hypertension; I25.10 Atherosclerotic heart disease of native coronary artery without angina pectoris; Z86.010 Personal history of colon polyps
CPT/HCPCS: J2704; J3010; J7030